=== PATIENT | female | born 1960 | race Caucasian/White ===

== ENCOUNTER 2018-12-13 12:04 | Emergency (ER) | payer SELFPAY ==
[~2018-12-13] VITALS: Ht 160 cm; Wt 68.0 kg
[2018-12-13] MEDS ORDERED: HYDROCODONE/APAP 7.5MG-325MG 1 EA TAB PO PRN (12:15)
--- NOTE | 2018-12-13 14:21 | Diagnostic Imaging Report ---
LOWER LEG RIGHT - 4 views HISTORY: Pain COMPARISON: None available. FINDINGS: Bones: No acute displaced fracture. Osseous alignment is within normal limits. Joints: The joint spaces are well-maintained. Soft tissues: The soft tissues appear unremarkable. IMPRESSION: No acute radiographic abnormality. Signed by: Dr. Lucius Lopez MD on 12/13/2018 2:18 PM
--- NOTE | 2018-12-13 14:28 | Diagnostic Imaging Report ---
LOWER LEG LEFT - 2 views HISTORY: Pain COMPARISON: None available. FINDINGS: Bones: No acute displaced fracture. Osseous alignment is within normal limits. Proximal fibular periosteal bulge. Joints: The joint spaces are well-maintained. Soft tissues: The soft tissues appear unremarkable. IMPRESSION: No acute radiographic abnormality. Proximal fibular periosteal bulge is a nonspecific probably chronic finding and less likely related to injury. This can be further evaluated with nonurgent MRI of the left leg. Signed by: Dr. Lucius Lopez MD on 12/13/2018 2:25 PM
--- NOTE | 2018-12-13 14:29 | Diagnostic Imaging Report ---
FOOT RIGHT COMPLETE - 3 views HISTORY: Pain COMPARISON: None available. FINDINGS: Bones: No acute displaced fracture. Osseous alignment is within normal limits. Joints: The joint spaces are well-maintained. Soft tissues: The soft tissues appear unremarkable. IMPRESSION: No acute radiographic abnormality. Signed by: Dr. Lucius Lopez MD on 12/13/2018 2:26 PM
--- NOTE | 2018-12-13 14:29 | Diagnostic Imaging Report ---
ANKLE 3+ VIEWS LEFT - 3 views HISTORY: Pain COMPARISON: None available. FINDINGS: Bones: No acute displaced fracture. Osseous alignment is within normal limits. Joints: The joint spaces are well-maintained. Soft tissues: The soft tissues appear unremarkable. IMPRESSION: No acute radiographic abnormality. Signed by: Dr. Lucius Lopez MD on 12/13/2018 2:25 PM
--- NOTE | 2018-12-13 14:32 | Diagnostic Imaging Report ---
FOOT LEFT COMPLETE - 3 views HISTORY: Pain COMPARISON: None available. FINDINGS: Bones: No acute displaced fracture. Subtle lucent lines, seen at the proximal second and third metatarsal bones, seen only on frontal view. Osseous alignment is within normal limits. Joints: The joint spaces are well-maintained. Soft tissues: The soft tissues appear unremarkable. IMPRESSION: No acute displaced fracture or dislocation of the left foot. Subtle tiny lucent lines, seen at the proximal second and third metatarsal bones, could be artifactual, represent vascular grooves, or represent nondisplaced fracture lines if there is point tenderness in this area. Signed by: Dr. Lucius Lopez MD on 12/13/2018 2:29 PM
[2018-12-13 15:19] VITALS: BP 141/76
== END 2018-12-13 15:01 | disposition home or self-care (01) ==
LOC: ER 12:07
DX: S93.622A Sprain of tarsometatarsal ligament of left foot, initial encounter (principal); S93.621A Sprain of tarsometatarsal ligament of right foot, initial encounter; S93.432A Sprain of tibiofibular ligament of left ankle, initial encounter; W01.0XXA Fall on same level from slipping, tripping and stumbling without subsequent striking against object, initial encounter; Y92.008 Other place in unspecified non-institutional (private) residence as the place of occurrence of the external cause
CPT/HCPCS: 99284

== ENCOUNTER → 2023-07-12 | Outpatient (REF) | payer OTHER | LOC: MAMMO 08:34 | PROVIDERS: ATTEND Internal Medicine | DX: Z12.31 Encounter for screening mammogram for malignant neoplasm of breast (principal); M85.88 Other specified disorders of bone density and structure, other site | CPT/HCPCS: 77067; 77080 ==

== ENCOUNTER → 2024-04-08 | Outpatient (REF) | payer OTHER | LOC: RAD 15:22 | PROVIDERS: ATTEND Internal Medicine | DX: R06.02 Shortness of breath (principal); J18.9 Pneumonia, unspecified organism | CPT/HCPCS: 71046 ==